=== PATIENT | female | born 1955 | race Hispanic/Latino ===

== ENCOUNTER 2019-02-15 08:07 | Outpatient (CLI) | payer BC ==
[2019-02-15 08:43] LABS: Hematocrit 41.2 % (30.3-42.9); Hemoglobin 13.9 gm/dl (10.1-14.3); Mean Corpuscular HGB Conc 34 % (30-34); Mean Corpuscular Volume 89 fl (79-97); Platelet Count 241 K/mm3 (140-440); Red Blood Count 4.65 M/mm3 (3.65-5.03); Red Cell Distribution Width 13.8 % (13.2-15.2)
[2019-02-15 09:12] LABS: Alanine Aminotransferase 32 units/L (7-56); BUN/Creatinine Ratio 20; Blood Urea Nitrogen 16 mg/dL (7-17); Hemolysis Index 30
[2019-02-20 14:16] LABS: Vitamin D, 25-OH, D2 18 ng/mL
== END 2019-02-15 08:08 | disposition home or self-care (01) ==
LOC: LAB 08:07
PROVIDERS: ATTEND Internal Medicine
DX: E11.65 Type 2 diabetes mellitus with hyperglycemia (principal); E55.9 Vitamin D deficiency, unspecified; R53.83 Other fatigue; E78.00 Pure hypercholesterolemia, unspecified; I10 Essential (primary) hypertension
CPT/HCPCS: 36415; 80053; 82306; 83036; 84443; 85027

== ENCOUNTER 2019-08-14 13:11 | Outpatient (CLI) | payer BC ==
--- NOTE | 2019-08-15 12:07 | Mammography Report ---
DIGITAL SCREENING MAMMOGRAM WITH CAD, 08/14/2019 INDICATION: Routine screening mammography. TECHNIQUE: Digital bilateral 2D mammography was obtained in the craniocaudal and mediolateral obliq ue projections. This examination was interpreted with the benefit of Computer-Aided Detection analysi s. COMPARISON: 01/26/2012 FINDINGS: Breast Density: The breasts are heterogeneously dense, which may obscure small masses. A left retroareolar focal asymmetry requires additional imaging. No suspicious architectural distorti on or suspicious calcifications of the left breast. A left outer asymmetry with architectural distort ion is unchanged compared to the last mammogram. There is no evidence of dominant mass, suspicious ca lcifications or architectural distortion in the right breast. IMPRESSION: Left focal asymmetry requiring additional imaging. Recommend recall for left spot magnifi cation views and left breast ultrasound. Follow up recommendation: Special View: Mag Category 0: Incomplete. Needs additional imaging evaluation and/or prior mammograms for comparison. A "normal" or negative report should not discourage follow up or biopsy of a clinically significant f inding. A written summary of these findings will be mailed to the patient. The patient will be entered into a mammography reporting system which will generate a reminder letter for the patient's next appointmen t at the appropriate interval. The [employer] recommends yearly mammograms starting at age 40 and continuing as l priyanka as a woman is in good health. Breast MRI is recommended for women with an approximate 20-25% or greater lifetime risk of breast cancer, including women with a strong family history of breast or ova [place] cancer or who have been treated for Hodgkin's disease. Signer Name: Ganga French MD Signed: 08/15/2019 12:02 PM Workstation Name: [id number]
== END 2019-08-14 13:12 | disposition home or self-care (01) ==
LOC: MAMMO 13:11
PROVIDERS: ATTEND Internal Medicine
DX: Z12.31 Encounter for screening mammogram for malignant neoplasm of breast (principal)
CPT/HCPCS: 77067

== ENCOUNTER 2019-10-02 14:27 | Outpatient (CLI) | payer BC ==
--- NOTE | 2019-10-02 16:09 | Ultrasound Report ---
LEFT DIGITAL DIAGNOSTIC MAMMOGRAM WITH CAD 10/02/2019 LEFT LIMITED BREAST ULTRASOUND INDICATION: Recall to evaluate a retroareolar mass. ABNORMAL MAMMOGRAM TECHNIQUE: Digital left mammographic imaging was performed. Magnification views were obtained. Limit ed ultrasound was performed. This examination was interpreted with the benefit of Computer-Aided Dete ction (CAD) analysis. COMPARISON: 08/14/2019 FINDINGS: Breast Density: The breasts are heterogeneously dense, which may obscure small masses. MAMMOGRAPHIC FINDINGS: An oval partially circumscribed retroareolar mass persists on spot magnificati on views. ULTRASOUND FINDINGS: Targeted ultrasound evaluation was performed of the area of interest. Ultrasou nd of the left breast demonstrated an oval solid partially circumscribed retroareolar mass measuring 1.0 x 1.1 x 0.8 cm. It has a mild irregular margin on some images. It is wider than tall and demonstr ates mild posterior enhancement. IMPRESSION: A solid suspicious 1 cm retroareolar mass. Recommend ultrasound-guided needle biopsy. I discussed the findings and the recommendation for needle biopsy with the patient at the time of the exam. She wishes to return to [facility] for the biopsy. Follow up recommendation: Biopsy BI-RADS Category 4: Suspicious for Malignancy. A "normal" or negative report should not discourage follow up or biopsy of a clinically significant f inding. A written summary of these findings will be mailed to the patient. The patient will be entered into a mammography reporting system which will generate a reminder letter for the patient's next appointmen t at the appropriate interval. According to the [employer], yearly mammograms are recommended starting at age 40 and continuing as long as a woman is in good health. Breast MRI is recommended for women with an maria e roximately 20-25% or greater lifetime risk of breast cancer, including women with a strong family his tory of breast or ovarian cancer and women who have been treated for Hodgkin's disease. Signer Name: Ganga French MD Signed: 10/02/2019 4:05 PM Workstation Name: [id number]
== END 2019-10-02 14:28 | disposition home or self-care (01) ==
LOC: SPVWC 14:27
PROVIDERS: ATTEND Internal Medicine
DX: R92.8 Other abnormal and inconclusive findings on diagnostic imaging of breast (principal)

== ENCOUNTER 2019-10-29 08:20 | Outpatient (CLI) | payer BC ==
--- NOTE | 2019-10-29 09:58 | Mammography Report ---
LEFT DIGITAL DIAGNOSTIC MAMMOGRAM CLINICAL: For clip placement after ultrasound guided needle biopsy. COMPARISON: 10/02/2019 FINDINGS: A retroareolar biopsy clip is identified on both views and correlates with the previously i dentified mass. IMPRESSION: Concordant clip deployment. Signer Name: Ganga French MD Signed: 10/29/2019 9:54 AM Workstation Name: [id number]
--- NOTE | 2019-10-29 10:31 | Ultrasound Report ---
ULTRASOUND-GUIDED NEEDLE CORE BIOPSY LEFT BREAST WITH CLIP PLACEMENT CLINICAL: A 1 cm retroareolar mass. FINDINGS: The procedure was explained to the patient and informed consent was obtained. Ultrasound demonstrated the previously identified mass. At the time of scanning, a dark brownish bloo dy nipple discharge was observed. I marked the breast with a felt tip marker and a timeout was called. The skin was prepped with Chloro -Prep and anesthetized with 1% lidocaine. Needle core biopsy was performed through a small dermatotomy using ultrasound guidance, 2% lidocaine with epinephrine for deep anesthesia and a 14-gauge Achieve biopsy device. 5 cores were obtained and placed in formalin. A clip was deployed within the mass. The patient tolerated the procedure well and there were no apparent complications. Hemostasis was ach ieved with minimal effort and a sterile dressing was applied. A post procedure mammogram demonstrated concordant clip deployment. She left the department in good c ondition and was given instructions for wound care and follow-up. IMPRESSION: Uncomplicated ultrasound guided needle core biopsy with clip placement left breast. Signer Name: Ganga French MD Signed: 10/29/2019 10:27 AM Workstation Name: [id number]
== END 2019-10-29 08:21 | disposition home or self-care (01) ==
LOC: SPVWC 08:20
PROVIDERS: ATTEND Internal Medicine
DX: N63.20 Unspecified lump in the left breast, unspecified quadrant (principal); C50.912 Malignant neoplasm of unspecified site of left female breast; E78.00 Pure hypercholesterolemia, unspecified; I10 Essential (primary) hypertension; E11.51 Type 2 diabetes mellitus with diabetic peripheral angiopathy without gangrene; Z17.0 Estrogen receptor positive status [ER+]; Z79.84 Long term (current) use of oral hypoglycemic drugs; Z79.899 Other long term (current) drug therapy; Z88.2 Allergy status to sulfonamides; Z80.0 Family history of malignant neoplasm of digestive organs; Z80.8 Family history of malignant neoplasm of other organs or systems
CPT/HCPCS: 88305; 88341; 88342

== ENCOUNTER 2019-11-18 08:45 | Outpatient (CLI) | payer BC ==
--- NOTE | 2019-11-18 15:02 | Magnetic Resonance Report ---
BILATERAL BREAST MR WITHOUT AND WITH GADOLINIUM INDICATION: Recently diagnosed left breast cancer. 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 COMPARISONS: 08/14/2019 and 10/29/2019 mammograms. TECHNIQUE: Axial 1.0 mm T1 without, axial high-resolution 2.0 mm T2 and axial 1.0 mm dynamic vibrant high-resolution postcontrast T1 fat saturation sequences on a 1.5 Neena magnet. The examination was p erformed with an 8-channel dedicated [place] breast coil. Post-processing with CAD and subtraction was performed on an [employer] workstation. 16.0 cc of MultiHance was injected without incident for the c ontrast portion of the exam. Consent was obtained prior to the administration of the contrast. FINDINGS: RIGHT BREAST: Minimal background parenchymal enhancement. No mass or suspicious enhancement. No suspi cious lymph nodes. LEFT BREAST: Minimal background parenchymal enhancement. An irregular retroareolar mass 2.5 cm from t he nipple measures 9.4 x 8.3 x 6.5 mm. It contains a biopsy clip and correlates with the known cancer . It demonstrates heterogeneous enhancement with mixed kinetics, rapid initial enhancement, 198% peak enhancement and 97% type I persistent and 3% type II plateau waveforms. 0% type III washout. A cydney guous focus of non mass enhancement is identified anterior and slightly superior to the known cancer. It measures 6.7 x 3.6 x 2.3 mm and demonstrates homogeneous enhancement with rapid initial enhanceme nt, 147% peak enhancement and 100% type I persistent waveform. No other mass or suspicious enhancemen t. No suspicious lymph nodes. IMPRESSION: 1. A 9.4 mm left retroareolar breast cancer and a 6.7 mm contiguous lesion of focal non mass enhancem ent. There appears to be mammographic correlation for the second lesion. Recommend mammographically g uided bracketing and surgical excision. 2. Negative right breast. 3. No suspicious lymph nodes. BI-RADS Category 6: Known Cancer Signer Name: Ganga French MD Signed: 11/18/2019 2:57 PM Workstation Name: [id number]
== END 2019-11-18 08:46 | disposition home or self-care (01) ==
LOC: SPVIMAG 08:45
PROVIDERS: ATTEND Surgery
DX: C50.412 Malignant neoplasm of upper-outer quadrant of left female breast (principal)
CPT/HCPCS: A9577; C8908; 77049

== ENCOUNTER 2019-11-25 09:49 | Outpatient (CLI) | payer BC ==
[2019-11-25 10:53] LABS: Blood Urea Nitrogen 12 mg/dL (7-17)
--- NOTE | 2019-11-25 12:32 | Cat Scan Report ---
CT CHEST, ABDOMEN AND PELVIS WITH CONTRAST HISTORY: Newly diagnosed left breast cancer. COMPARISON: MRI breast bilateral 11/18/2019. No comparison CT. TECHNIQUE: CT images of the chest, abdomen and pelvis were obtained following administration of intra venous contrast. Note: All CT scans at this location are performed using CT dose reduction employed for ALARA by means of automated exposure control. CONTRAST: 100 ml of Omnipaque 300. Consent was obtained prior to the administration of contrast. FINDINGS: CT CHEST: Heart and Pericardium: No significant abnormality. Vasculature: No significant abnormality. Lymphatics: No lymphadenopathy. Lungs: No significant abnormality. Trachea and Bronchi: No significant abnormality. Osseous Structures: No suspicious bone lesion. Soft tissues: A biopsy clip in the left breast. CT ABDOMEN: Liver: No significant abnormality. Biliary: No significant abnormality. Spleen: No significant abnormality. Unenlarged. Pancreas: No significant abnormality. Adrenals: No significant abnormality. Kidneys: No significant abnormality. Lymphatics: No lymphadenopathy. Vasculature: No significant abnormality. Bowel/Peritoneum: Nonobstructive bowel. Sigmoid diverticulosis without mesocolonic fat stranding. No free air. No free fluid. Normal appendix. A normal appearing LAP-BAND. CT PELVIS: : Normal uterus and ovaries. Osseous Structures: No suspicious bone lesion. Additional Findings: None IMPRESSION: 1. No evidence of metastatic disease. 2. Status post LAP-BAND procedure with normal appearance of the band. 3. Sigmoid diverticulosis but no signs of diverticulitis. Signer Name: Ganga French MD Signed: 11/25/2019 12:27 PM Workstation Name: [id number]
--- NOTE | 2019-11-25 14:01 | Nuclear Medicine Report ---
WHOLE BODY BONE SCAN HISTORY: Newly diagnosed left breast cancer. COMPARISON: No prior exam or report is available for direct comparison. There is a comparison CT ches t, abdomen and pelvis done on the same day. TECHNIQUE: Following administration of Tc-99m MDP, static whole body anterior and posterior delayed p hase images were acquired. RADIOPHARMACEUTICAL: 27.5 mCi Tc-99m MDP. FINDINGS: Focal midline uptake at the level of the upper thoracic spine. Activity is midline on anterior images and there is focal uptake to the left of midline on posterior images. There is no correlating lesion in the sternum or the thyroid on today's CT. No other suspicious uptake. Normal physiologic backgrou nd activity. Additional Findings: None. IMPRESSION: 1. Abnormal upper thoracic or lower cervical uptake without a correlative lesion by CT. Recommend cer vical spine x-rays or CT neck to assess the lower cervical spine and cervicothoracic junction. 2. No other suspicious activity. Signer Name: Ganga French MD Signed: 11/25/2019 1:57 PM Workstation Name: [id number]
== END 2019-11-25 09:50 | disposition home or self-care (01) ==
LOC: CT 09:49
PROVIDERS: ATTEND Internal Medicine Hematology & Oncology
DX: C50.912 Malignant neoplasm of unspecified site of left female breast (principal); K57.30 Diverticulosis of large intestine without perforation or abscess without bleeding
CPT/HCPCS: 36415; 71260; 74177; 78306; 82565; 84520; A9503; Q9967

== ENCOUNTER 2019-11-29 07:24 | Outpatient (CLI) | payer BC ==
--- NOTE | 2019-11-29 10:10 | Cat Scan Report ---
CT NECK WITH CONTRAST HISTORY: Malignant neoplasm of unspecified site of left female breast TECHNIQUE: Helical CT was performed before and after 100 cc of Omnipaque 300 by the technologist. Sag ittal and coronal reformatted images. All CT scans at this location are performed using CT dose reduc tion for ALARA by means of automated exposure control.. COMPARISON: Bone scan dated 11/25/2019. FINDINGS: Recent bone scan demonstrated mild uptake in the lower cervical and upper thoracic spine wi th no obvious abnormality on CT chest. CT neck was performed to further evaluate. The paravertebral s oft tissues and parapharyngeal soft tissues are unremarkable. The salivary glands are normal size, at tenuation and density. There is no evidence for cervical adenopathy. The thyroid gland is normal. The vascular structures are patent. No suspicious bony lesion is detected on the given images. Abnormal uptake on bone scan appears to be secondary to moderate degenerative disc disease at C5-6 and C6-7 an d hypertrophic left facet arthropathy at C4-5. IMPRESSION: No suspicious nodule, mass or bony lesion is identified in the neck. Abnormal uptake seen on recent b one scan appears to be secondary to degenerative change. Signer Name: Walter Darling Jr, MD Signed: 11/29/2019 10:05 AM Workstation Name: [id number]
== END 2019-11-29 07:25 | disposition home or self-care (01) ==
LOC: CT 07:24
PROVIDERS: ATTEND Surgery
DX: M47.812 Spondylosis without myelopathy or radiculopathy, cervical region (principal); M50.322 Other cervical disc degeneration at C5-C6 level; M50.323 Other cervical disc degeneration at C6-C7 level; C50.912 Malignant neoplasm of unspecified site of left female breast
CPT/HCPCS: 70491; Q9967

== ENCOUNTER 2019-12-18 06:28 | Outpatient (CLI) | payer BC ==
[2019-12-18 06:52] LABS: Hematocrit 41.9 % (30.3-42.9); Mean Corpuscular HGB Conc 34 % (30-34); Mean Corpuscular Volume 88 fl (79-97); Platelet Count 243 K/mm3 (140-440); Red Blood Count 4.75 M/mm3 (3.65-5.03); Red Cell Distribution Width 13.8 % (13.2-15.2)
[2019-12-18 07:27] LABS: Alanine Aminotransferase 25 units/L (7-56); Albumin 4.2 g/dL (3.9-5); BUN/Creatinine Ratio 27; Blood Urea Nitrogen 19 mg/dL (7-17); Calcium 9.5 mg/dL (8.4-10.2); Hemolysis Index 7; LDL Cholesterol,Direct 167 mg/dL (50-130)
[2019-12-18 08:57] LABS: HDL Cholesterol 72 mg/dL (40-59)
== END 2019-12-18 06:29 | disposition home or self-care (01) ==
LOC: LAB 06:28
PROVIDERS: ATTEND Internal Medicine
DX: Z00.00 Encounter for general adult medical examination without abnormal findings (principal); R53.83 Other fatigue; E78.2 Mixed hyperlipidemia; E11.65 Type 2 diabetes mellitus with hyperglycemia
CPT/HCPCS: 36415; 80053; 80061; 83036; 84443; 85027

== ENCOUNTER 2019-12-25 06:03 | Day surgery (SDC) | payer BC ==
[~2019-12-25 06:03] MED LIST: GABAPENTIN 300 MG CAP PO NR; LACTATED RINGERS 1,000 ML IV SCH; MAGNESIUM OXIDE 400 MG TAB PO SCH; MIDAZOLAM 2 MG/2 ML INJ IV NR; WATER FOR IRRIG STERILE 1,500 ML BOTTLE IR ONE; ceFAZolin/Water 2 GM/20 ML 2 GM/20 ML SYRINGE IV NR; fentaNYL 100 MCG/2 ML INJ IV PRN
--- NOTE | 2019-12-25 07:10 | Anesthesia Day of Surgery ---
Anesthesia Day of Surgery - Day of Surgery Patient Examined: Yes Patient H&P Reviewed: Yes Patient is NPO: Yes
--- NOTE | 2019-12-25 07:14 | Anesthesia Consultation ---
Anesthesia Consult and Med Hx Date of service: 12/25/19 - Airway Anesthetic Teeth Evaluation: Crowns ROM Head & Neck: Adequate Mental/Hyoid Distance: Adequate Mallampati Class: Class II Intubation Access Assessment: Probably Good - Pre-Operative Health Status ASA Pre-Surgery Classification: ASA2 Proposed Anesthetic Plan: General Nerve Block: PEC - Pulmonary Hx Smoking: Yes (QUIT OVER 20 YEARS AGO) Hx Pneumonia: Yes (resolved) - Cardiovascular System Hx Hypertension: Yes (X 15YRS. States she can climb two flights of stairs) Hx Peripheral Vascular Disease: Yes - Central Nervous System Hx Back Pain: (NECK) Hx Psychiatric Problems: No - Gastrointestinal Hx Gastroesophageal Reflux Disease: No (Lap band) - Endocrine Hx Liver Disease: Yes (Fatty liver) Hx Non-Insulin Dependent Diabetes: Yes (on metformin) - Hematic Hx Anemia: Yes (H/O WITH MENSES; RESOLVED) - Other Systems Hx Cancer: Yes Hx Obesity: Yes (BMI 32)
[2019-12-25] MEDS ORDERED: BUPIVACAINE-EPINEPHRINE/PF 0.5%-1:200,000 (30 ML) VIAL INFILTRATI ONE (07:18)
[2019-12-25] MEDS ORDERED: ACETAMINOPHEN 500 MG TAB PO SCH (07:30)
[2019-12-25] MEDS ORDERED: METHYLENE BLUE 50 MG/10 ML AMP ONE (07:38)
[2019-12-25] MEDS ORDERED: SODIUM CHLORIDE P/F VIAL 10 ML 10 ML ONE (07:39)
[2019-12-25] MEDS ORDERED: fentaNYL 100 MCG/2 ML INJ ONE (07:55)
[2019-12-25] MEDS ORDERED: propofoL 200 MG/20 ML VIAL IV ONE (07:55)
[2019-12-25] MEDS ORDERED: LIDOCAINE MPF (2%) 20 MG/1 ML VIAL 5 ML ONE (07:55)
[2019-12-25] MEDS ORDERED: METHYLENE BLUE 50 MG/10 ML AMP IRRIGATION ONE (08:14)
[2019-12-25] MEDS ORDERED: SODIUM CHLORIDE 0.9% P/F 10 ML VIAL INFILTRATI ONE (08:14)
[2019-12-25] MEDS ORDERED: ePHEDrine SULFATE 50 MG/1 ML INJ ONE (08:28)
[2019-12-25] MEDS ORDERED: dexAMETHasone 20 MG/5 ML VIAL ONE (09:03)
[2019-12-25] MEDS ORDERED: ONDANSETRON 4 MG/2 ML INJ ONE (09:03)
[2019-12-25] MEDS ORDERED: WATER FOR IRRIG STERILE 1,500 ML BOTTLE IR ONE (09:21)
--- NOTE | 2019-12-25 11:03 | Mammography Report ---
SPECIMEN RADIOGRAPH LEFT BREAST INDICATION: LT BREAST CANCER POST EXC BX. COMPARISON: 10/29/2019 FINDINGS: A localizer clip is identified within the specimen. IMPRESSION: 1. Excision of the known cancer.. Signer Name: Ganga French MD Signed: 12/25/2019 10:58 AM Workstation Name: [id number]
[2019-12-25] MEDS ORDERED: KETOROLAC 30 MG/1 ML INJ ONE (11:09)
[2019-12-25] MEDS ORDERED: LACTATED RINGERS 1,000 ML ONE (11:09)
--- NOTE | 2019-12-25 11:34 | Operative Report ---
Operative Report Operative Report: December 25, 2019 Preoperative diagnosis: Left breast cancer of the retroareolar/upper outer quadrant Postoperative diagnosis: Same Procedure: Left central mastectomy of the upper outer quadrant and SLNB Surgeon: Yanet Farris MD Parenting Skills Instructor: Dr. Chappell Anesthesia: General Findings: Left central mastectomy with clip present within radiograph specimen; x2 SLNs Complications: None EBL: Less than 50 cc Disposition: PACU in good condition Indications for operative procedure: This is a 64 year old lady with newly diagnosed left breast cancer of the upper outer quadrant/retroareolar, Stage I cT1b/cN0M0 ER/MT positive. Recommendations are to proceed with breast conservation with a central mastectomy-did not recommend nipple conservation given retroareolar breast cancer and patient with bloody nipple discharge with concerns for ductal involvement. Other option was to proceed with a mastectomy and she wished to proceed with breast conservation. She understands the role of adjuvant radiation therapy and Oncotype DX will be obtained by medical oncology. She wished to proceed with the above procedure. Procedure in detail: Anesthesia placed left pectoral block. Patient was then taken to the operating room. Gen. anesthesia was administered. The left nipple was injected with radioisotope and 1 cc of methylene blue dye. Left breast and axilla were prepped and draped in the normal sterile operative fashion. Timeout was performed. Gamma probe was inserted into the axilla. The area of hot spot was identified. A left axillary incision was made with a 15 blade knife with dissection taken down to the subcutaneous tissues. The axillary fascia was opened with the Bovie cautery. 2 SLNs were identified. All remaining counts were less than 10% of the highest count. Lymph nodes were sent to pathology for permanent processing. Hemostasis was obtained in the left axillary cavity. Axillary cavity was appropriately irrigated and suctioned. Hemostasis was noted. Axillary fascia was approximated and closed using interrupted 3-0 Vicryl and the skin brought together and closed using a running 4-0 Monocryl followed by skin affix. Attention was then taken towards the left breast. Ultrasound was used to identify the known cancer. NAC was outlined with markings for incision; skin incision was made with a 10 blade knife and dissection taken down to subcutaneous tissues. First began raising of the superior flap with dissection taken down to the pectoralis muscle, followed by raising of the inferior flap, medial flap and lateral flap with all flaps taken down to the pectoralis muscle. The breast area of concern was appropriately removed posteriorly from the pectoralis muscle with the aid of the Bovie cautery. Specimen was marked and then sent to pathology and radiology; radiograph specimen with clip present. Breast cavity was irrigated and hemostasis was obtained. The posterior deep b reast tissues were approximated and closed using interrupted 3-0 Vicryl. The subcutaneous tissues were approximated and closed using interrupted 3-0 Vicryl followed by closing of the skin with a running 4-0 Monocryl and skin affix. The patient tolerated surgery very well and she was awaken from anesthesia without any complication and transported to PACU in good condition.
--- NOTE | 2019-12-25 11:36 | Short Stay Summary ---
Short Stay Documentation Date of service: 12/25/19 - History H&P: obtained from office - Allergies and Medications Current Medications: Allergies Sulfa (Sulfonamide Antibiotics) Allergy (Verified 12/18/19 09:43) Rash Home Medications Medication Instructions Recorded Confirmed Last Taken Type Losartan [Cozaar] 100 mg PO QDAY 12/18/19 12/25/19 12/24/19 08:30 History Active Medications Acetaminophen (Tylenol) 1,000 mg PO ONCE ADELINA Stop: 12/25/19 14:00 Fentanyl (Sublimaze) 100 mcg IV ONCE PRN PRN Reason: sedation for nerve block Stop: 12/25/19 23:59 Last Admin: 12/25/19 07:48 Dose: 100 mcg Documented by: Gabapentin (Gabapentin) 300 mg PO PREOP NR Stop: 12/25/19 23:59 Last Admin: 12/25/19 06:55 Dose: 300 mg Documented by: Cefazolin Sodium (Ancef/Sterile Water 2 Gm/20 Ml) 2 gm in 20 mls @ 80 mls/hr IV PREOP NR; Protocol Stop: 12/25/19 16:00 Lactated Ringer's (Lactated Ringers) 1,000 mls @ 100 mls/hr IV DIRECT ADELINA Last Admin: 12/25/19 07:00 Dose: 100 mls/hr Documented by: Magnesium Oxide (Mag-Ox) 400 mg PO PREOP ADELINA Stop: 12/25/19 23:59 Last Admin: 12/25/19 06:55 Dose: 400 mg Documented by: Midazolam HCl (Versed) 2 mg IV PREOP NR Stop: 12/25/19 23:59 Last Admin: 12/25/19 07:47 Dose: 2 mg Documented by: - Brief post op/procedure progress note Date of procedure: 12/25/19 Pre-op diagnosis: left breast cancer Post-op diagnosis: same Procedure: left central mastectomy with SLNB Anesthesia: GETA Findings: left breast clip and x2SLNs Surgeon: JALEESA DORSEY Estimated blood loss: minimal Pathology: list Specimen disposition: to lab Condition: stable - Disposition Condition at discharge: Good Disposition: DC-01 TO HOME OR SELFCARE Short Stay Discharge Plan Activity: other (no heavy lifting) Diet: regular Wound: keep clean and dry (may shower in 48 hours; no baths, pools; wear breast bindder) Follow up with: SPENSER WATKINS MD [Primary Care Provider] - 7 Days JALEESA DORSEY MD [Staff Physician] - 7 Days
--- NOTE | 2019-12-25 11:48 | Post Anesthesia Evaluation ---
- Post Anesthesia Evaluation Patient Participated: Yes Airway Patent: Yes Stable Respiratory Function: Yes Nausea/Vomiting: No Temp > 96.8F: Yes Pain Manageable: Yes Adequeate Hydration: Yes Anesthesia Complications: No Block Receding Appropriately: Not Applicable Patient on Ventilator: No
[2019-12-25] MEDS ORDERED: ONDANSETRON 4 MG/2 ML INJ IV PRN (11:52)
[2019-12-25] MEDS: HYDROmorphone 1 MG/1 ML INJ IV PRN ×2 (11:55→12:05)
[2019-12-25 12:42] VITALS: BP 134/75
== END 2019-12-25 13:10 | disposition home or self-care (01) ==
LOC: OR 06:03
PROVIDERS: ATTEND Surgery
DX: C50.412 Malignant neoplasm of upper-outer quadrant of left female breast (principal); I89.8 Other specified noninfective disorders of lymphatic vessels and lymph nodes; E78.00 Pure hypercholesterolemia, unspecified; I10 Essential (primary) hypertension; E66.9 Obesity, unspecified; M19.90 Unspecified osteoarthritis, unspecified site; E11.9 Type 2 diabetes mellitus without complications; D64.9 Anemia, unspecified; Z80.0 Family history of malignant neoplasm of digestive organs; Z80.8 Family history of malignant neoplasm of other organs or systems; Z68.32 Body mass index [BMI] 32.0-32.9, adult; Z79.84 Long term (current) use of oral hypoglycemic drugs; Z88.2 Allergy status to sulfonamides; Z87.891 Personal history of nicotine dependence; Z79.899 Other long term (current) drug therapy
CPT/HCPCS: 19301; 38525; 38792; 76098; 78800; 88307; 88341; 88342; A9541; J0690; J1100; J1170; J1885; J2250; J2405; J2704; J3010; J7120; Q9968; 64450; 88333

== ENCOUNTER 2020-03-16 06:15 | Outpatient (CLI) | payer BC, MEDICARE ==
[2020-03-16 06:44] LABS: Hematocrit 41.4 % (30.3-42.9); Hemoglobin 13.8 gm/dl (10.1-14.3); Mean Corpuscular HGB Conc 33 % (30-34); Mean Corpuscular Volume 90 fl (79-97); Platelet Count 269 K/mm3 (140-440); Red Blood Count 4.61 M/mm3 (3.65-5.03); Red Cell Distribution Width 13.9 % (13.2-15.2)
[2020-03-16 06:59] LABS: Alanine Aminotransferase 26 units/L (7-56); Albumin 4.6 g/dL (3.9-5); BUN/Creatinine Ratio 19; Blood Urea Nitrogen 15 mg/dL (7-17); Calcium 9.7 mg/dL (8.4-10.2)
== END 2020-03-16 06:16 | disposition home or self-care (01) ==
LOC: LAB 06:15
PROVIDERS: ATTEND Internal Medicine Hematology & Oncology
DX: C50.912 Malignant neoplasm of unspecified site of left female breast (principal)
CPT/HCPCS: 36415; 80053; 85027

== ENCOUNTER 2020-06-25 07:25 | Outpatient (CLI) | payer BC ==
[2020-06-25 17:00] LABS: Hematocrit 40.6 % (30.3-42.9); Hemoglobin 13.6 gm/dl (10.1-14.3); Mean Corpuscular HGB Conc 34 % (30-34); Mean Corpuscular Volume 90 fl (79-97); Platelet Count 245 K/mm3 (140-440); Red Blood Count 4.49 M/mm3 (3.65-5.03)
[2020-06-25 17:39] LABS: Albumin 4.4 g/dL (3.9-5); Calcium 9.6 mg/dL (8.4-10.2)
== END 2020-06-25 07:26 | disposition home or self-care (01) ==
LOC: LAB 07:25
PROVIDERS: ATTEND Internal Medicine Hematology & Oncology
DX: C50.912 Malignant neoplasm of unspecified site of left female breast (principal)
CPT/HCPCS: 36415; 80053; 85027; 86300

== ENCOUNTER 2020-08-10 06:13 | Outpatient (CLI) | payer BC, MEDICARE ==
[2020-08-10 18:16] LABS: Basophils # (Auto) 0.1 K/mm3 (0.0-0.1); Basophils % (Auto) 1.4 % (0.0-1.8); Eosinophils # (Auto) 0.2 K/mm3 (0.0-0.4); Eosinophils % (Auto) 2.6 % (0.0-4.3); Hematocrit 40.2 % (30.3-42.9); Hemoglobin 13.8 gm/dl (10.1-14.3); Lymphocytes # (Auto) 1.2 K/mm3 (1.2-5.4); Lymphocytes % (Auto) 15.8 % (13.4-35.0); Mean Corpuscular HGB Conc 34 % (30-34); Mean Corpuscular Volume 91 fl (79-97); Monocytes # (Auto) 0.5 K/mm3 (0.0-0.8); Monocytes % (Auto) 6.6 % (0.0-7.3); Platelet Count 230 K/mm3 (140-440); Red Blood Count 4.42 M/mm3 (3.65-5.03); Red Cell Distribution Width 13.8 % (13.2-15.2)
[2020-08-10 18:28] LABS: Albumin 4.4 g/dL (3.9-5); Calcium 9.8 mg/dL (8.4-10.2)
== END 2020-08-10 06:14 | disposition home or self-care (01) ==
LOC: LAB 06:13
PROVIDERS: ATTEND Internal Medicine Hematology & Oncology
DX: C50.912 Malignant neoplasm of unspecified site of left female breast (principal)
CPT/HCPCS: 36415; 80053; 85025; 86300

== ENCOUNTER 2020-09-01 08:24 | Outpatient (CLI) | payer BC ==
--- NOTE | 2020-09-01 12:24 | Ultrasound Report ---
BILATERAL DIGITAL DIAGNOSTIC MAMMOGRAM WITH CAD WITH TOMOSYNTHESIS, 09/01/2020 LEFT LIMITED BREAST ULTRASOUND CLINICAL INFORMATION / INDICATION: H/O LEFT BREAST CA Z85.3 TECHNIQUE: Digital bilateral mammographic imaging was performed. Limited ultrasound was performed. Th is examination was interpreted with the benefit of Computer-Aided Detection (CAD) analysis. COMPARISON: Bilateral mammography 08/14/19. FINDINGS: Breast Density: The breasts are heterogeneously dense, which may obscure small masses. MAMMOGRAPHIC FINDINGS: No dominant mass, suspicious calcifications, or architectural distortion in th e right breast. There are new postlumpectomy and radiation changes in the left breast. There is a new 2.6 cm rounded nodule in the left axilla. ULTRASOUND FINDINGS: Targeted ultrasound evaluation was performed of the area of interest. There is a 2.3 cm rounded simple cyst in the left axilla 13 cm from the nipple which corresponds to the mammo graphic finding. The findings are likely related to postoperative seroma related to lymph node dissec tion. IMPRESSION: Interval postlumpectomy and radiation changes in the left breast. 2.3 cm simple cyst in t he left axilla is new and likely represents postoperative seroma. No mammographic or sonographic evid ence of malignancy. Follow up recommendation: Routine yearly BI-RADS Category 2: Benign. A "normal" or negative report should not discourage follow up or biopsy of a clinically significant f inding. A written summary of these findings will be mailed to the patient. The patient will be entered into a mammography reporting system which will generate a reminder letter for the patient's next appointmen t at the appropriate interval. According to the [employer], yearly mammograms are recommended starting at age 40 and continuing as long as a woman is in good health. Breast MRI is recommended for women with an maria e roximately 20-25% or greater lifetime risk of breast cancer, including women with a strong family his tory of breast or ovarian cancer and women who have been treated for Hodgkin's disease. Signer Name: Pritesh Kim MD Signed: 09/01/2020 10:11 AM Workstation Name: [id number]
== END 2020-09-01 08:25 | disposition home or self-care (01) ==
LOC: SPVWC 08:24
PROVIDERS: ATTEND Surgery
DX: N60.02 Solitary cyst of left breast (principal); Z85.3 Personal history of malignant neoplasm of breast
CPT/HCPCS: 76642; 77066; G0279

== ENCOUNTER 2021-01-25 13:24 | Outpatient (CLI) | payer BC, MEDICARE ==
--- NOTE | 2021-01-25 15:43 | Mammography Report ---
LEFT DIGITAL DIAGNOSTIC MAMMOGRAM WITH CAD , 01/25/2021 LEFT LIMITED BREAST ULTRASOUND CLINICAL INFORMATION / INDICATION: Patient had left lumpectomy for breast carcinoma in December 2019. Sh nori is now feeling a palpable lump in the left axillary tail region. TECHNIQUE: Digital left mammographic imaging was performed. Limited ultrasound was performed. This ex amination was interpreted with the benefit of Computer-Aided Detection (CAD) analysis. COMPARISON: Prior mammogram 09/01/2020 and preoperative mammogram 08/14/2019 FINDINGS: Breast Density: The breasts are heterogeneously dense, which may obscure small masses. MAMMOGRAPHIC FINDINGS: No dominant mass, suspicious calcifications, or architectural distortion in th e left breast. In the area of the palpable lump, axillary tail region, there is a linear density on t he MLO view but no appreciable abnormality on the cc view. The appearance is most consistent with jose daniel gical scar. Postlumpectomy changes are seen throughout the left central breast. ULTRASOUND FINDINGS: Targeted ultrasound evaluation was performed of the area of interest. Sonograp hic evaluation of the palpable area shows a few tiny subcentimeter cystic areas, most consistent with oil cysts. In this same area, and just deep to the skin surface, there is a focal hypoechoic area me asuring approximately 10 mm, with an appearance most suggestive of fat necrosis. IMPRESSION: No mammographic or sonographic evidence of malignancy. Palpable area in the left breast c orresponds to prior surgical scar region and is most consistent with scar tissue/fat necrosis. Please correlate clinically. Follow up recommendation: Routine yearly BI-RADS Category 2: Benign. A "normal" or negative report should not discourage follow up or biopsy of a clinically significant f inding. A written summary of these findings will be mailed to the patient. The patient will be entered into a mammography reporting system which will generate a reminder letter for the patient's next appointmen t at the appropriate interval. According to the [employer], yearly mammograms are recommended starting at age 40 and continuing as long as a woman is in good health. Breast MRI is recommended for women with an maria e roximately 20-25% or greater lifetime risk of breast cancer, including women with a strong family his tory of breast or ovarian cancer and women who have been treated for Hodgkin's disease. Signer Name: Steffi Hanna MD Signed: 01/25/2021 3:17 PM Workstation Name: [id number]
== END 2021-01-25 13:25 | disposition home or self-care (01) ==
LOC: MAMMO 13:24
PROVIDERS: ATTEND Surgery
DX: N63.0 Unspecified lump in unspecified breast (principal); R92.8 Other abnormal and inconclusive findings on diagnostic imaging of breast

== ENCOUNTER 2021-03-01 08:08 | Outpatient (CLI) | payer MEDICARE ==
--- NOTE | 2021-03-01 09:04 | Mammography Report ---
DIGITAL DIAGNOSTIC MAMMOGRAM WITH CAD WITH TOMOSYNTHESIS, 03/01/2021 CLINICAL INFORMATION / INDICATION: The patient has a history of lump in the left axillary tail for se veral months. She has had this area previously evaluated on 01/25/2021 with benign results. She has a personal history of left breast cancer treated with lumpectomy. TECHNIQUE: Digital left mammographic imaging was performed. This examination was interpreted with the benefit of Computer-aided Detection analysis. COMPARISON: 01/25/2021, 09/01/2020 FINDINGS: Breast Density: The breasts are heterogeneously dense, which may obscure small masses. No dominant mass, suspicious calcifications or architectural distortion in the left breast. Postsurgical changes from lumpectomy are again noted and appear stable. The patient's area of palpabl e concern in the left axillary tail marked with a skin marker appears to correspond to area of postsu rgical scar. IMPRESSION: No mammographic evidence of malignancy. No focal mammographic finding is seen to correspo nd to the patient's area of palpable concern in the left axillary tail. Ultrasound is recommended for complete evaluation and will be done in Dr. Farris's office later today. Recommend that these fin dings be correlated. Follow up recommendation: Clinical exam A "normal" or negative report should not discourage follow up or biopsy of a clinically significant f inding. A written summary of these findings will be mailed to the patient. The patient will be entered into a mammography reporting system which will generate a reminder letter for the patient's next appointmen t at the appropriate interval. According to the [employer], yearly mammograms are recommended starting at age 40 and continuing as long as a woman is in good health. Breast MRI is recommended for women with an maria e roximately 20-25% or greater lifetime risk of breast cancer, including women with a strong family his tory of breast or ovarian cancer and women who have been treated for Hodgkin's disease. Signer Name: Mira Jackson MD Signed: 03/01/2021 8:59 AM Workstation Name: [id number]
== END 2021-03-01 08:09 | disposition home or self-care (01) ==
LOC: SPVWC 08:08
PROVIDERS: ATTEND Surgery
DX: R92.8 Other abnormal and inconclusive findings on diagnostic imaging of breast (principal); Z85.3 Personal history of malignant neoplasm of breast
CPT/HCPCS: 77065; G0279

== ENCOUNTER 2021-04-28 10:37 | Outpatient (CLI) | payer MEDICARE ==
[2021-04-28 11:07] LABS: Basophils # (Auto) 0.1 K/mm3 (0.0-0.1); Basophils % (Auto) 1.1 % (0.0-1.8); Eosinophils # (Auto) 0.2 K/mm3 (0.0-0.4); Eosinophils % (Auto) 3.2 % (0.0-4.3); Hematocrit 39.6 % (30.3-42.9); Hemoglobin 13.7 gm/dl (10.1-14.3); Lymphocytes # (Auto) 1.6 K/mm3 (1.2-5.4); Lymphocytes % (Auto) 21.3 % (13.4-35.0); Mean Corpuscular HGB Conc 35 % (30-34); Mean Corpuscular Volume 89 fl (79-97); Monocytes # (Auto) 0.5 K/mm3 (0.0-0.8); Monocytes % (Auto) 7.2 % (0.0-7.3); Platelet Count 253 K/mm3 (140-440); Red Blood Count 4.43 M/mm3 (3.65-5.03); Red Cell Distribution Width 14.3 % (13.2-15.2)
[2021-04-28 11:35] LABS: Alanine Aminotransferase 33 units/L (7-56); Albumin 4.4 g/dL (3.9-5); Blood Urea Nitrogen 13 mg/dL (7-17); Calcium 9.5 mg/dL (8.4-10.2); Hemolysis Index 8
[2021-04-28 11:37] LABS: BUN/Creatinine Ratio 19
[2021-04-28 11:48] LABS: Creatinine,Urine 107.4 mg/dL (0.1-20.0)
[2021-04-28 11:53] LABS: Microalbumin/Creatinine Ratio 11.1 ug/mg
--- NOTE | 2021-04-28 12:17 | XRay Report ---
RIGHT KNEE 2 VIEWS INDICATION / CLINICAL INFORMATION: PAIN IN RIGHT KNEE COMPARISON: None available. FINDINGS: BONES and JOINT(S): No acute fracture or subluxation. There is mild tricompartmental osteoarthritis. SOFT TISSUES: No significant abnormality. ADDITIONAL FINDINGS: None. IMPRESSION: Mild osteoarthritis of the right knee. Signer Name: Elbert Graham MD Signed: 04/28/2021 12:13 PM Workstation Name: [id number]
[2021-04-28 16:59] LABS: Chol/HDL Ratio 2.84 %; HDL Cholesterol 77 mg/dL (40-59); LDL Cholesterol,Direct 136 mg/dL (50-130)
[2021-05-01 13:00] LABS: Vitamin D, 25-OH, D2 22 ng/mL
== END 2021-04-28 10:38 | disposition home or self-care (01) ==
LOC: XRAY 10:37
PROVIDERS: ATTEND Internal Medicine
DX: Z13.29 Encounter for screening for other suspected endocrine disorder (principal); Z00.00 Encounter for general adult medical examination without abnormal findings; M17.11 Unilateral primary osteoarthritis, right knee; E11.9 Type 2 diabetes mellitus without complications; E78.5 Hyperlipidemia, unspecified; E55.9 Vitamin D deficiency, unspecified
CPT/HCPCS: 36415; 80053; 80061; 82043; 82306; 83036; 84443; 85025

== ENCOUNTER 2021-06-15 14:58 | Outpatient (CLI) | payer MEDICARE ==
[2021-06-15 15:25] LABS: Basophils # (Auto) 0.2 K/mm3 (0.0-0.1); Basophils % (Auto) 2.4 % (0.0-1.8); Eosinophils # (Auto) 0.2 K/mm3 (0.0-0.4); Eosinophils % (Auto) 2.7 % (0.0-4.3); Hematocrit 40.2 % (30.3-42.9); Hemoglobin 13.6 gm/dl (10.1-14.3); Lymphocytes # (Auto) 1.5 K/mm3 (1.2-5.4); Lymphocytes % (Auto) 16.4 % (13.4-35.0); Mean Corpuscular HGB Conc 34 % (30-34); Mean Corpuscular Volume 91 fl (79-97); Monocytes # (Auto) 0.5 K/mm3 (0.0-0.8); Monocytes % (Auto) 6.2 % (0.0-7.3); Platelet Count 244 K/mm3 (140-440); Red Blood Count 4.44 M/mm3 (3.65-5.03); Red Cell Distribution Width 14.4 % (13.2-15.2)
[2021-06-15 15:44] LABS: Alanine Aminotransferase 25 units/L (7-56); Albumin 4.4 g/dL (3.9-5); Blood Urea Nitrogen 15 mg/dL (7-17); Calcium 9.7 mg/dL (8.4-10.2); Hemolysis Index 6
[2021-06-15 15:45] LABS: BUN/Creatinine Ratio 21
== END 2021-06-15 14:59 | disposition home or self-care (01) ==
LOC: LAB 14:58
PROVIDERS: ATTEND Internal Medicine Hematology & Oncology
DX: C50.912 Malignant neoplasm of unspecified site of left female breast (principal)
CPT/HCPCS: 36415; 80053; 85025; 86300

== ENCOUNTER 2021-08-09 14:25 | Outpatient (CLI) | payer MEDICARE ==
[2021-08-09 15:00] LABS: Mucus,Urine FEW /HPF
[2021-08-09 19:13] LABS: Bilirubin,Urine NEG (Negative); Blood,Urine NEG (Negative); Color,Urine Amber (Yellow); Protein,Urine <15 mg/dL mg/dL (Negative)
== END 2021-08-09 14:26 | disposition home or self-care (01) ==
LOC: LAB 14:25
PROVIDERS: ATTEND Internal Medicine
DX: N39.0 Urinary tract infection, site not specified (principal)
CPT/HCPCS: 81001

== ENCOUNTER 2021-09-14 09:12 | Outpatient (CLI) | payer MEDICARE ==
[2021-09-14 10:17] LABS: Bilirubin,Urine NEG (Negative); Blood,Urine NEG (Negative); Color,Urine Yellow (Yellow); Protein,Urine <15 mg/dL mg/dL (Negative); Urobilinogen,Urine < 2.0 mg/dL (<2.0)
[2021-09-14 10:24] LABS: Chol/HDL Ratio 2.53 %
== END 2021-09-14 09:13 | disposition home or self-care (01) ==
LOC: LAB 09:12
PROVIDERS: ATTEND Internal Medicine
DX: E11.9 Type 2 diabetes mellitus without complications (principal); N39.0 Urinary tract infection, site not specified; E78.5 Hyperlipidemia, unspecified
CPT/HCPCS: 36415; 80061; 81001; 83036

== ENCOUNTER 2021-11-10 11:39 | Outpatient (CLI) | payer MEDICARE ==
[2021-11-10 11:58] LABS: Bilirubin,Urine NEG (Negative); Blood,Urine SM (Negative); Color,Urine Amber (Yellow); Protein,Urine <15 mg/dL mg/dL (Negative)
== END 2021-11-10 11:40 | disposition home or self-care (01) ==
LOC: LAB 11:39
PROVIDERS: ATTEND Internal Medicine
DX: N39.0 Urinary tract infection, site not specified (principal)
CPT/HCPCS: 81001; 87076; 87086; 87186

== ENCOUNTER 2022-05-16 10:31 | Outpatient (CLI) | payer MEDICARE ==
[2022-05-16 12:13] LABS: Basophils # (Auto) 0.1 K/mm3 (0.0-0.1); Basophils % (Auto) 1.3 % (0.0-1.8); Eosinophils # (Auto) 0.1 K/mm3 (0.0-0.4); Eosinophils % (Auto) 1.9 % (0.0-4.3); Hematocrit 42.4 % (30.3-42.9); Hemoglobin 14.1 gm/dl (10.1-14.3); Lymphocytes # (Auto) 1.7 K/mm3 (1.2-5.4); Lymphocytes % (Auto) 22.5 % (13.4-35.0); Mean Corpuscular HGB Conc 33 % (30-34); Mean Corpuscular Volume 91 fl (79-97); Monocytes # (Auto) 0.5 K/mm3 (0.0-0.8); Monocytes % (Auto) 6.5 % (0.0-7.3); Platelet Count 250 K/mm3 (140-440); Red Blood Count 4.67 M/mm3 (3.65-5.03); Red Cell Distribution Width 13.2 % (13.2-15.2)
[2022-05-16 12:22] LABS: INR 0.84 (0.87-1.13); Partial Thromboplastin Time 27.1 Sec. (24.2-36.6)
[2022-05-16 12:26] LABS: Alanine Aminotransferase 23 units/L (7-56); Blood Urea Nitrogen 15 mg/dL (7-17); Calcium 10.1 mg/dL (8.4-10.2); Chol/HDL Ratio 2.32 %; HDL Cholesterol 76 mg/dL (40-59); Hemolysis Index 3; LDL Cholesterol,Direct 94 mg/dL (50-130)
[2022-05-16 12:43] LABS: BUN/Creatinine Ratio 21
[2022-05-19 11:32] LABS: Vitamin D, 25-OH, D2 22 ng/mL
== END 2022-05-16 10:32 | disposition home or self-care (01) ==
LOC: LABHHL 10:31
PROVIDERS: ATTEND Internal Medicine
DX: E78.5 Hyperlipidemia, unspecified (principal); R73.03 Prediabetes; E55.9 Vitamin D deficiency, unspecified; Z00.00 Encounter for general adult medical examination without abnormal findings; Z86.2 Personal history of diseases of the blood and blood-forming organs and certain disorders involving the immune mechanism
CPT/HCPCS: 36415; 80053; 80061; 82306; 83036; 84443; 85025; 85610; 85730